=== PATIENT | male | born 2000 | race Caucasian/White ===

== ENCOUNTER 2024-12-27 16:53 | Emergency (ER) | payer BC, SELFPAY ==
[2024-12-27] VITALS (10 sets, daily range): BP systolic 105–117; BP diastolic 65–83; PULSE 91–104; RESP 10–20; TEMP 36.8; O2SAT 92–100; BMI 21.0
--- OUTSIDE RECORDS SUMMARY | 2024-12-27 16:55 | XMS_ITS | Clinical Summary ---
Author Organization [facility] Address [address] [place] [id number] Care Team Providers Care Engineering Technical Analyst Name Role Phone Royal Tinoco MD Primary Care Provider [phone] Source Comments You are receiving this document as you are listed as the primary care provider,follow-up provider, or the patient has been referred to you for consultation.This is in compliance with the Medicare and[facility] EHR Incentive Program,which states Providers who transition their patient to another setting of careor provider of care or refers their patient to another provider of care shouldprovide summary care record for each transition of care or referral. [facility] Allergies No known active allergies Social History Tobacco Use Types Packs/Day Years Used Date Smoking Tobacco: Never Smokeless Tobacco: Current Tobacco Cessation:Ready to Q uit: Not Asked; Counseling Given: Not Answered Alcohol Use Standard Drinks/Week Comments Not Currently 0 (1 standard drink = 0.6 oz pur e alcohol) Sex and Gender Information Value Date Recorded Sex Assigned at Not on file Legal Sex Male 10:22 AM EXECUTIVE LEGAL SECRETARY Gender Identity Not on file Sexual Orientation Not on file Last Filed Vital Signs Vital Sign Reading Time Taken Comments Blood Pressure 108/64 03/25/2023 2:42 PM EXECUTIVE LEGAL SECRETARY Pulse 56 03/25/2023 2:42 PM EXECUTIVE LEGAL SECRETARY Temperature 36.7 C (98 F) 03/25/2023 2:42 PM EXECUTIVE LEGAL SECRETARY Respiratory Rate 16 03/25/2023 2:42 PM EXECUTIVE LEGAL SECRETARY Oxygen Saturation 98% 03/25/2023 2:42 PM EXECUTIVE LEGAL SECRETARY Inhaled Oxygen Concentration - - Weight - - Height - - Body Mass Index - - Plan of Treatment Health Maintenance Due Date Last Done Comments Hep C Screening (Preventive Services) 1999 Hep B Screening ([employer] Wizard) 2000 HIV Screening (Preventive Services) 2015 Adult Preventive Visit 2017 HepB Vaccine (1) 2018 COVID-19 Vaccine (2 - season) 2024 09/29/2020 Influenza Vaccine (#1) 2025 6, 01/26/2010, 01/26/2010 DTaP/Tdap/Td Vaccine (8 - Tdap) 11/18/2030 11/18/2020, 10/18/2010, 02/26/2004, Additional history exists Zoster/Shingles Vaccine (1 of 2) 2049 Hib Vaccine Completed 09/04/2000 Pneumococcal Vaccine Aged Out 10/31/2000, 10/31/2000, 05/11/2000, Additional history exists No longer eligible based on patient's age to complete this topic IPV (Polio) Vaccine Completed 02/26/2004, 05/06/2003, 1999, Additional history exists HepA Vaccine Completed 01/26/2010, 11/24/2008 HPV Vaccine Completed 12/13/2013, 12/07, 11/29/2011 MCV4 Vaccine Completed 06/18/2015, 10/18/2010 Meningococcal B Vaccine Aged Out No l onger eligible based on patient's age to complete this topic Insurance [facility] [address] Care Teams Engineering Technical Analyst Relationship Specialty Start Date End Date Royal Tinoco MD [address] [place] [address] PCP - General Family Practice 03/25/23
--- OUTSIDE RECORDS SUMMARY | 2024-12-27 16:55 | XMS_ITS | Clinical Summary ---
Author Organization [facility] Address [address] [place] [id number] Care Team Providers Care Sign Hanger Supervisor Name Role Phone Royal Tinoco MD Primary Care Provider Allergies Active Allergy Reactions Criticality Noted Date Comments Amoxicillin Rash 11/24/2008 Medications hydrOXYzine HCL (ATARAX) 25 mg tablet Take 1 Tablet by mouth 3 times daily if needed. 2 Active dextroamphetamine -amphetamine (AdderalL) 10 mg tabletIndications :Attention deficit hyperactivity disorder (ADHD), unspecified ADHD type Take 1 Tablet (10 mg) by mouth 2 times daily at 7 AM and Noon. 30 Tablet 5 Active clotrimazole-beta methasone 1%-0.05% creamIndications: Rash Apply topically to affected area(s) two times daily. Not to exceed 14 days in one location without interruption. 30 g 5 Active predniSONE (DELTASONE) 10 mg tabletIndications :Lumbar radiculopathy,Bul ge of lumbar disc without myelopathy Take 4 Tablets (40 mg) by mouth once daily with a meal for 3 days, THEN 3 Tablets (30 mg) once daily with a meal for 3 days, THEN 2 Tablets (20 mg) once daily with a meal for 3 days, THEN 1 Tablet (10 mg) once daily with a meal for 3 days. 30 Tablet 5 01/07/20 25 Active celecoxib (CELEBREX) 200 mg capsuleIndication s:Lumbar radiculopathy Take 1 Capsule (200 mg) by mouth two times daily with meals. Start when prednisone finished. 60 Capsule 2 Active Active Problems Problem Noted Date Diagnosed Date Lumbar radiculopathy 08/23/2024 History of alcohol dependence 07/25/2024 Closed nondisplaced fracture of middle phalanx of lesser toe of right foot with routine healing 05/12/2016 Attention deficit disorder with hyperactivity(31 4.01) 02/21/2007 Encounters Date Type Department Care Team Description 12/25/2024 4:20 PM CDT Office Visit [facility] [address] [place] [address] Sonido Romo MD Musculoskeletal Problem (Low back pain) 12/25/2024 Travel 12/17/2024 11:45 AM CDT Ancillary Procedure [facility] [address] [place] [address] 12/17/2024 Travel 12/10/2024 9:40 AM CDT Office Visit [facility] [address] [place] [address] Royal Tinoco MD Medication Management (Discuss ADHD medication); Foot Problem (Rash on left foot, started a couple months ago) 12/10/2024 Travel 12/03/2024 Telephone [facility] [address] [place] [address] Royal Tinoco MD Form from Last 3 Months Immunizations Immunization Administration Dates Next Due COVID-19 vaccine (Elena-J&J) JUANA KEENAN 1 DTaP 05/06/2003, 1,07/18/2000,09/08,1999,1999 [id number] (Pediarix) 02/26/2004 HIB HbOC (HibTITER) 09/04/2000 Hepatitis A (Peds) 01/26/2010,11/24/2008 Hepatitis B (Peds) 1999,1999, 000 Hepatitis B, Unspecified 1999,1999,0 1999 Human Papilloma Virus Vaccine 12/13/2013, 013,11/29/2011 Inactivated Polio Vaccine 05/06/2003 Influenza, IIV3 (Age 6-35 mos) 01/26/2010 Influenza, IIV3 (Age >=3 years) 01/26/2010 Influenza, IIV4 03/30/2016 MENINGOCOCCAL VACCINE 2 VIAL 2MO-55YO (MENVEO) 06/18/2015 MMR 05/06/2003,05/11/2000 Meningococcal Vaccine (Menactra) 10/18/2010 Oral Polio Vaccine 1999,1999, 000 Pneumococcal Poly,23-Valent (Pneumovax) 10/31/2000,05/11/2000 Pneumococcal conj 7-Valent (Prevnar 7) 1,05/11/2000 Polio Virus, Unspecified 1999,1999,0 1999 Tdap 11/18/2020,10/18/2010 Tuberculin (PPD) 10/18/2010 Typhoid (injectable) 10/18/2010,11/24/2008 Varicella Vaccine 04/10/2006,05/11/2000 Family History Medical History Relation Name Comments Cancer Maternal Grandmother bowel Hyperlipidemia Maternal Grandmother Other Other no diagnosed AD HD but others have sxs of it Asthma No Family History Cancer-colon No Family History Diabetes No Family History Heart Disease No Family History Relation Name Status Comments Father Alive Maternal Grandmother Mother Alive Other Social History Tobacco Use Types Packs/Day Years Used Date Smoking Tobacco: Never Smokeless Tobacco: Former Chew Tobacco Cessation:Counseling Given: No Alcohol Use Standard Drinks/Week Comments Not Currently 0 (1 standard drink = 0.6 oz pur e alcohol) PHQ-2 Answer Date Recorded PHQ-2 TOTAL SCORE 0 12/10/2024 Social Connections Answer Date Recorded Do you often feel lonely or isolated from those around you? 0 07/25/2024 Financial Resource Strain Answer Date R ecorded Difficulty of Paying Living Expenses 3 07/25/2024 Difficulty of Paying Living Expenses Not on file 07/25/2024 Food Insecurity Answer Date Recorded Do you worry your food will run out before you are able to buy more? 1 07/25/2024 Transportation Needs Answer Date Record ed Does lack of transportation keep you from medica l appointments? 1 07/25/2024 Does lack of transportation keep you from work, meetings or getting things that you need? 1 07/25/2024 Housing Stability Answer Date Recorded What is your housing situation today? 1 07/25/2024 Utilities Answer Date Recorded Do you have trouble paying f or utilities (for example, heat, electricity, water, phone)? 1 07/25/2024 Sex and Gender Information Value Date Recorded Sex Assigned at Not on file Legal Sex Male 7:06 AM VICE PRESIDENT OF BRAND MANAGEMENT Gender Identity Not on file Sexual Orientation Not on file Obstetrics History Last Filed Vital Signs Vital Sign Reading Time Taken Comments Blood Pressure 100/70 12/25/2024 4:29 PM CDT Pulse 120 12/25/2024 4:29 PM CDT Temperature 36.4 C (97.5 F) 05/09/2023 2:45 PM VICE PRESIDENT OF BRAND MANAGEMENT Respiratory Rate 16 05/09/2023 2:45 PM VICE PRESIDENT OF BRAND MANAGEMENT Oxygen Saturation 99% 12/25/2024 4:29 PM CDT Inhaled Oxygen Concentration - - Weight 73 kg (161 lb) 12/25/2024 4:29 PM CDT Height 186 cm (6' 1.23) 12/10/2024 9:48 AM CDT Body Mass Index 21.11 12/10/2024 9:48 AM CDT Plan of Treatment Health Maintenance Due Date Last Done Comments Hepatitis C screening for ag e 18-79 2017 Pneumococcal series for age 6-49 (1 of 2 - PCV) 2018 10/31/2000, 10/31/2000, 05/11/2000, Additional history exists COVID-19 vaccine series ( season) 2024 05/26/2021, 09/29/2020 Influenza Vaccine (#1) 2025 6, 01/26/2010, 01/26/2010 BMI (ht and wt on same day) for age 18+ 12/10/2025 12/10/2024, 07/25/2024, 04/07/2022, Additional history exists Depression screening for age 12+ 12/10/2025 12/10/2024, 04/07/2022, 04/27/2021, Additional history exists Tetanus booster 11/18/2030 11/18/2020, 10/18/2010 Hepatitis B series for 19+ Completed 02/25, 1999, 1999, Additional history exists HPV series for age 9-26 Completed 12/14/19 14, 01/02/2013, 11/29/2011 HIV for age 15-65 Completed 11/19/2021, 02/04/2020 Procedures Procedure Name Priority Date/Time Associated Diagnosis Comments MR SPINE LUMBAR WO Routine 12/17/2024 12 :21 PM CDT Lumbar radiculopathy ANTI HIV 1/2 Routine 11/19/2021 8:52 PM CDT Screen for STD (sexually transmitted disease) from Last 3 Months or Most Recently Relevant to Health Maintenance Results * MR SPINE LUMBAR WO (12/17/2024 12:21 PM CDT) Anatomical Region Laterality Modality Spine, LUMBAR SPINE Magnetic Res onance 12/17/2024 2:01 PM CDT Narrative 12/17/2024 2:01 PM CDT For Patients: As a result of the Century Cures Act, medical imaging exams and procedure reports are released immediately into your electronic medical record. You may view this report before your referring provider. If you have questions, please contact your health care provider. Indication: Lumbar radiculopathy. Technique: Multiplanar multisequence noncontrast MR images of the lumbar spine. Comparison: None. Findings: Straightening of the lumbar lordosis. Vertebral body heights are maintained. No acute fracture or spondylolisthesis. No T1 hypointense lesions or marrow edema. Normal conus terminates at L1. T12-L1 through L3-4: No spinal canal or neural foraminal narrowing. L4-5: Shallow disc bulge. No spinal canal or neural foraminal narrowing. L5-S1: Annular bulge. No spinal canal or neural foraminal narrowing. Impression: Minimal lumbar spondylosis without spinal canal or neural foraminal stenosis. Dictated by Brian Balderas MD @ 12/17/2024 2:01:15 PM (Electronically Signed) Procedure Note Brian Balderas MD - 12/17/2024 For Patients: As a result of the Century Cures Act, medical imagingexams and procedure reports are released immediately into your electronicmedical record. You may view this report before your referring provider.If you have questions, please contact your health care provider. Indication: Lumbar radiculopathy. Technique: Multiplanar multisequence noncontrast MR images of the lumbar spine. Comparison: None. Findings: Straightening of the lumbar lordosis. Vertebral body heights aremaintained. No acute fracture or spondylolisthesis. No T1 hypointenselesions or marrow edema. Normal conus terminates at L1. T12-L1 through L3-4: No spinal canal or neural foraminal narrowing. L4-5: Shallow disc bulge. No spinal canal or neural foraminal narrowing. L5-S1: Annular bulge. No spinal canal or neural foraminal narrowing. Impression: Minimal lumbar spondylosis without spinal canal or neural foraminalstenosis. Dictated by Brian Balderas MD @ 12/17/2024 2:01:15 PM (Electronically Signed) us Royal Tinoco MD MR Final Result * ANTI HIV 1/2 (11/19/2021 8:52 PM CDT) HIV-1/HIV-2 ANTIBODY Non-Reacti ve Non-Reacti ve 11/19/2021 11:30 PM CDT [facility] [employer] [facility] Comment:HIV-1 p24 and HIV-1/ HIV-2 Ab not detected. Blood BLOOD SPECIMEN / Unknown Venipuncture / Unknown 11/19/2021 8:52 PM CDT 11/19/2021 9:13 PM CDT us Josep MONTANO SEND OUTS Final R esult [facility] [address] [place] [address], [place] from Last 3 Months or Most Recently Relevant to Health Maintenance Insurance [facility] Care Teams Sign Hanger Supervisor Relationship Specialty Start Date End Date Royal Tinoco MD [address] [place] [address] PCP - General 08/22/05
--- NOTE | 2024-12-27 17:09 | ED_ITS ---
HPI - General Adult General Chief complaint: Arrhythmia/Palpitations Stated complaint: fast heart rate for last two days Time Seen by Provider: 12/27/24 17:03 History of Present Illness HPI narrative: Pt reports ongoing issues with racing heart for 2 days, feeling weaker, lightheaded, numb hand. Has lost 10 lbs in 2 weeks unintentionally . 24-year-old man presenting to the emergency department with concerns primarily of a racing heart over the last couple of days. History is a little bit difficult to clarify initially. Subsequently describes more recent use of bumps of methamphetamine to help at work in particular over the last couple of weeks. Than to settle down drinking a little bit of alcohol. He does acknowledge that is concerned about potential withdrawal at this point. Describes drinking approximately a pt of whiskey/deepti over this last week. Does not appear that engages in regular drug use. Did have a period of time where he used a few years ago. History of being rather active particularly with soccer until injured his low back. Has some bulging discs. Is not treating or rehabbing this regularly. Does describe intermittently where he has episodes of racing heart. After drinking alcohol then was able to sleep but then wakes with this r acing heart. He has measured up to 120. No diagnosis of SVT or AFib. Related Data Previous Rx's ?Medication ?Instructions ?Recorded propranolol 20 mg tablet 20 mg PO TID PRN racing hear t 12/27/24 symptoms #15 tabs Allergies Allergy/AdvReac Type Severity Reaction Status Date / Time No Known Drug Allergies Allergy Verified 12/27/24 16:59 Review of Systems Status of ROS: Reports: 6 or more systems reviewed and unremarkable except as noted in History and below PFSH PFS Social History Smoking Status: Never smoker How often do you have a drink containing alcohol: never AUDIT-C Alcohol total score: 0 Non-prescribed substance use: amphetamines/methamphetamines Exam Narrative: Exam Narrative: Very pleasant. Calm. Cranial nerves 2-12 intact. Pupils are 4 mm and equal. He is moving all extremities without difficulty, fluidly. Skin is warm and dry without evidence of self-harm. Heart in elevated to tachycardic rate in a regular rhythm. Chest is slim. Abdomen is flat soft nontender. Extremities are well perfused without edema. Lungs are clear. Const: Vital Signs, click to edit/add: Vital Signs - 24 hr 12/27/24 16:57 12/27/24 17:04 12/27/24 17:05 Temperature 98.3 F Pulse Rate 97 99 Pulse Rate [Pulse Oximeter] 104 H Respiratory Rate 20 Blood Pressure 117/65 Blood Pressure [Ri ght Upper Arm] 109/67 Pulse Oximetry 98 96 97 Oxygen Delivery Me thod Room Air 12/27/24 17:15 12/27/24 17:30 12/27/24 17:31 Temperature Pulse Rate 102 H 100 97 Pulse Rate [Pulse Oximeter] Respiratory Rate 12 10 L Blood Pressure 110/83 Blood Pressure [Ri ght Upper Arm] Pulse Oximetry 92 98 99 Oxygen Delivery Me thod 12/27/24 17:45 12/27/24 18:00 12/27/24 18:01 Temperature Pulse Rate 93 91 93 Pulse Rate [Pulse Oximeter] Respiratory Rate Blood Pressure 105/71 Blood Pressure [Ri ght Upper Arm] Pulse Oximetry 100 96 95 Oxygen Delivery Me thod 12/27/24 18:15 Temperature Pulse Rate Pulse Rate [Pulse Oximeter] Respiratory Rate 15 Blood Pressure Blood Pressure [Ri ght Upper Arm] Pulse Oximetry Oxygen Delivery Me thod Documenting provider has reviewed patient's vital signs: yes Course Vital Signs Vital signs: Initial Vital Signs Temperature 98.3 F 12/27/24 16:57 Temperature Source Temporal Artery Scan 12/27/24 16:57 Pulse Rate 104 H 12/27/24 16:57 Respiratory Rate 20 12/27/24 16:57 Blood Pressure 109/67 12/27/24 16:57 Blood Pressure Mean 81 12/27/24 16:57 Blood Pressure Position Sitting 12/27/24 16:57 Pulse Oximetry 98 12/27/24 16:57 Oxygen Delivery Method Room Air 12/27/24 16:57 Vital Signs Temperature 98.3 F 12/27/24 16:57 Pulse Rate 104 H 12/27/24 16:57 Respiratory Rate 20 12/27/24 16:57 Blood Pressure 109/67 12/27/24 16:57 Pulse Oximetry 98 12/27/24 16:57 Oxygen Delivery Method Room Air 12/27/24 16:57 Temperature 98.3 F 12/27/24 16:57 Pulse Rate 93 12/27/24 18:01 Respiratory Rate 15 08/22/25 18:15 Blood Pressure 105/71 12/27/24 18:01 Pulse Oximetry 95 12/27/24 18:01 Oxygen Delivery Method Room Air 12/27/24 16:57 Medical Decision Making MDM Narrative Medical decision making narrative: Following disclosure of substance/alcohol use. I think would be prudent focus on this. May have some episodes of attacks of anxiety as well. I think less likely to have uncontrolled SVT or AFib. Doubtful ischemic cardiovascular event. Use does not sound to be so much that would be contributing to hypertrophic cardiac situation. No family history of sudden cardiac . No exercise intolerance historically. I believe changes in EKG most likely related to thin chest. Did consider chest x-ray another evaluation but he is also concerned about insurance at this point. With use has been creating a pendulum of symptoms I think. Says he typically does not have a heart rate lately below 90. Is expressing some embarrassment about being in this situation. Does have Adderall but does not take it as does not like how it makes him feel; meth apparently is more effective. Monitored on athletic monitor without event. We finally settled on treating symptoms with pocket pill of propanolol. See patient discharge plan for further discussion Best wishes in your efforts at sobriety. Hopefully you can get your back sorted soon and return to playing soccer as I think this might be good for you in many respects. As discussed am providing you with some propranolol. This is a beta-lamont and can slow your heart rate a little bit and then help with those uncomfortable feelings as well. Best thing in the senior care is of course to stay sober. If you have been staying substance free for weeks and you are still having these racing heart episodes, I would follow-up in primary care and consider longer- term cardiac monitoring. ECG Data Attestation: I personally reviewed and interpreted this ECG as follows: (Sinus tachycardia at a rate of 102. Prominent P waves suggesting enlarged right atria. Would note thin chest) Discharge Plan Discharge Clinical Impression: Palpitations, Substance use Patient Disposition: Home, Self-Care Condition: Stable Additional Instructions: Best wishes in your efforts at sobriety. Hopefully you can get your back sorted soon and return to playing soccer as I think this might be good for you in many respects. As discussed am providing you with some propranolol. This is a beta-lamont and can slow your heart rate a little bit and then help with those uncomfortable feelings as well. Best thing in the long term acute care registered nurse is of course to stay sober. If you have been staying substance free for weeks and you are still having these racing heart episodes, I would follow-up in primary care and consider longer- term cardiac monitoring. Prescriptions: New propranolol 20 mg tablet 20 mg PO TID PRN (Reason: racing heart symptoms) Qty: 15 0RF Follow Up/Referrals: Royal Tinoco MD [Primary Care Provider, Family Practice] Stand Alone Forms: [employer] Info Instructions
== END 2024-12-27 18:52 | disposition home or self-care (01) ==
PROVIDERS: Emergency Provider Family Medicine; PCP Family Medicine
DX: R00.2 Palpitations (principal); F15.10 Other stimulant abuse, uncomplicated
CPT/HCPCS: 93005; 99284